=== PATIENT | male | born 1965 | race Caucasian/White ===

== ENCOUNTER 2023-11-12 08:46 | Outpatient (CLI) | payer OTHER, SELFPAY ==
[2023-11-13 08:23] LABS: Kit Draw Collected
== END 2023-11-12 08:47 | disposition home or self-care (01) ==
LOC: ANHGOSHLAB 08:48
PROVIDERS: PCP Family Medicine; Visit Provider Nurse Practitioner Family
DX: E78.49 Other hyperlipidemia (principal); E66.3 Overweight; Z12.5 Encounter for screening for malignant neoplasm of prostate
CPT/HCPCS: 36415

== ENCOUNTER 2024-11-11 08:42 | Outpatient (CLI) | payer OTHER, SELFPAY | END 2024-11-11 08:43 | disposition home or self-care (01) | LOC: ANHGOSHLAB 08:45 | PROVIDERS: PCP Family Medicine; Visit Provider Nurse Practitioner Family | DX: E66.3 Overweight (principal); E78.49 Other hyperlipidemia | CPT/HCPCS: 36415 ==

== ENCOUNTER 2025-01-19 07:22 | Day surgery (SDC) | payer OTHER, SELFPAY ==
[2024-11-28 09:06] VITALS: BMI 28.3
[2024-12-31 13:37] VITALS: BMI 29.0
[2025-01-19] MEDS: LACTATED RINGERS 1,000 ML 150 ML IV CONT (07:53)
[2025-01-19 07:56] VITALS: BP 129/86; PULSE 64; RESP 18; TEMP 36.7; O2SAT 99
--- NOTE | 2025-01-19 08:39 | P.PNAN_ITS ---
Anes - Initial Pre Proc Eval Procedure: Operation Date: 01/19/25 09:00 Proposed Procedures p Screening Colonoscopy - Ger Marsh DO Date/Time: 01/19/25 08:39 Surgeon: Ger Marsh DO Pre Op Diagnosis: Family History of Colon Polyps Patient Data Age: 59 Gender: M Height: 1.73 m Weight: 84.75 kg Last Vital Signs Temp 98.1 F 01/19/25 07:56 Pulse 64 01/19/25 07:56 Resp 18 01/19/25 07:56 BP 129/86 01/19/25 07:56 Pulse Ox 99 01/19/25 07:56 O2 Del Method Room Air 01/19/25 07:56 Allergies Allergy/AdvReac Type Severity Reaction Status Date / Time No Known Allergies Allergy Mild Verified 12/31/24 13:35 Home Medications ?Medication ?Instructions ?Recorded ?Confirmed ?Type atorvastatin 10 mg tablet 10 mg PO DAILY 12/31/2401/05 History Patient hx anesthesia problems: none Family hx anesthesia problems: none Results Review: All pre-operative results and documents have been reviewed as part of the pre- operative evaluation. [facility] Past Medical History Medical History Overweight (BMI 25.0-29.9) Social History Social History Smoking status: Never smoker Alcohol intake: current Drinks per week: 1 Substance use: never Substance use type: does not use Living arrangements: with family Spiritual care concerns: No Anes - Eval Final PreProcedure Day of Procedure 01/19/25 08:39 Heart: regular rate and rhythm Lungs: clear to auscultation Airway: Mallampati scale class II Neurological: alert and oriented ASA classification: II Anesthetic plan: proceed Anesthesia type and monitoring: monitored anesthesia care Results Review: All pre-operative results and documents have been reviewed as part of the pre- operative evaluation. Informed Consent: The patient's anesthetic plan and its attendant risks and benefits were discussed with the patient/family/POA. Questions were solicited and answers provided to the satisfaction of the patient/family/POA.
--- NOTE | 2025-01-19 08:55 | WPDANESPN ---
Anes - Prog Note Post-Op Date/Time: 01/19/25 08:55 Vital Signs: Last Vital Signs Temp 98.1 F 01/19/25 07:56 Pulse 64 01/19/25 07:56 Resp 18 01/19/25 07:56 BP 129/86 01/19/25 07:56 Pulse Ox 99 01/19/25 07:56 O2 Del Method Room Air 01/19/25 07:56 Pain Score (VAS): no Patient Feedback: Patient satisfied with anesthetic care.
--- NOTE | 2025-01-19 08:57 | PM.IMHP ---
H&P: HPI History of Present Illness Date/Time: 01/19/25 08:57 Chief Complaint: screening for colorectal cancer Narrative: this is a 59-year-old man who presents for colonoscopy. His last colonoscopy was 8 years ago. Is some family history of colon polyps in his and sister. He denies family history of colon cancer. He denies hematochezia or melena. Review of Systems Review of Systems: All systems reviewed & are unremarkable except as noted in HPI and below Constitutional: Constitutional: Denies chills, Denies fever(s), Denies headache(s) and Denies weight loss Eyes: Eyes: Denies change in vision ENT: Denies dizziness, Denies headache(s), Denies neck mass and Denies throat swelling Cardiovascular: Cardiovascular: Denies chest pain, Denies lightheadedness and Denies dyspnea Respiratory: Respiratory: Denies cough, Denies dyspnea and Denies wheezing Gastrointestinal: Gastrointestinal: Denies abdominal pain, Denies change in bowel habits, Denies nausea and Denies vomiting Genitourinary: Genitourinary: Denies hematuria and Denies dysuria Musculoskeletal: Musculoskeletal: Reports as per HPI Integumentary/Breasts: Skin/Breast: Reports as per HPI Neurologic: Denies dizziness and Denies headache(s) Allergic/Immunologic: Allergic/Immunologic: Denies throat swelling and Denies wheezing PMF Past Medical History Medical History Overweight (BMI 25.0-29.9) Social History Social History Smoking status: Never smoker Alcohol intake: current Drinks per week: 1 Substance use: never Substance use type: does not use Living arrangements: with family Spiritual care concerns: No Meds Home Medications and Allergies Home Medications ?Medication ?Instructions ?Recorded ?Confirmed ?Type atorvastatin 10 mg tablet 10 mg PO DAILY 12/31/24 01/19/25 History Allergies Allergy/AdvReac Type Severity Reaction Status Date / Time No Known Allergies Allergy Mild Verified 12/31/24 13:35 Vital Signs Vital Signs - 24 hr 01/19/25 07:56 Temperature 98.1 F Pulse Rate 64 Respiratory Rate 18 Blood Pressure 129/86 Pulse Oximetry 99 Oxygen Delivery Room Air Exam Const: General: no acute distress and alert Orientation/consciousness: patient oriented x3 HENMT: Head: normocephalic and atraumatic Ears: hearing grossly normal bilaterally Face/Nose/Sinus: Normal nares present Mouth: Yes Normal oral and palatal mucosa present Eyes: Periorbital: periorbital findings normal Sclera: sclerae normal EOM: EOMs intact bilaterally Neck: Neck: normal visual inspection, no lymphadenopathy and trachea midline Chest: Chest palpation & inspection: normal inspection of the chest Resp: Effort & Inspection: normal respiratory effort Auscultation: clear to auscultation bilaterally Cardio: Jugular venous distension: no JVD Rate: regular rate Rhythm: regular rhythm Heart sounds: S1 normal heart sound present and S2 normal heart sound present Peripheral pulses: Peripheral pulses 2+ throughout GI: Inspection: normal to inspection GI Palp: Yes Soft to palpation, No Tenderness to palpation present (GI), No Guarding due to palpation present (GI) and No Rebound tenderness present Percussion: Yes normal to percussion Auscultation: normal bowel sounds : General: Yes no CVA tenderness Back/Spine/Pelvis: Back: no CVA tenderness Neuro: General: patient oriented x3, no focal motor deficits and CN's II-XI intact bilaterally Cognition (Neuro): normal cognition Speech: normal speech Motor exam (neuro): 5/5 motor strength present throughout Extrem: General: capillary refill normal and no clubbing, cyanosis or edema Assessment and Plan Assessment and plan (1) Screening for colorectal cancer: Code(s): Z12.11 - Encounter for screening for malignant neoplasm of colon; Z12.12 - Encounter for screening for malignant neoplasm of rectum Status: Acute Assessment and Plan: I have recommended colonoscopy. I have discussed the procedure, risks, benefits, and alternatives. Questions were answered. Patient is agreeable to proceed. (2) Family hx colonic polyps: Code(s): Z83.719 - Family history of colon polyps, unspecified Status: Acute
[2025-01-19 09:18] VITALS: BP 113/79; PULSE 57; RESP 16; O2SAT 100
[2025-01-19 09:28] VITALS: BP 120/75; PULSE 55; RESP 17; O2SAT 100
[2025-01-19 09:38] VITALS: BP 132/83; PULSE 52; RESP 18; O2SAT 100
== END 2025-01-19 09:58 | disposition home or self-care (01) ==
PROVIDERS: PCP Family Medicine; Visit Provider Surgery
PROC: 0DJD8ZZ Inspection of Lower Intestinal Tract, Via Natural or Artificial Opening Endoscopic (ICD-10-PCS; CPT 45378; principal; 2025-01-19 09:00)
DX: Z12.11 Encounter for screening for malignant neoplasm of colon (principal)
CPT/HCPCS: 45378

== ENCOUNTER 2025-02-20 19:01 | Emergency (ER) | payer OTHER, SELFPAY ==
[2025-02-20 19:12] VITALS: BP 146/92; PULSE 68; RESP 18; TEMP 36.9; O2SAT 100
[2025-02-20 20:15] LABS: EDSTREPNEGPOS1 Negative (Negative)
--- NOTE | 2025-02-20 20:22 | ED.URI ---
HPI - URI/Sore Throat General Chief Complaint: Upper Respiratory Infection Stated Complaint: Sore Throat/Nasal Congestion Time Seen by Provider: 02/20/25 20:09 Source: patient and RN notes reviewed Mode of arrival: ambulatory Limitations: no limitations History of Present Illness HPI Narrative: 59-year-old male patient complains of a 2 day history of sore throat, nasal congestion, postnasal drip, subjective fever, sweats, chills. He just got home on an airplane today from a cruise. Denies cough or shortness of breath. Currently rates pain 3/10 and has tried no OTC treatment prior to arrival. He is a nonsmoker. No history of asthma or COPD. Related Data Home Medications ?Medication ?Instructions ?Recorded ?Confirmed ?Last Taken ?Type atorvastatin 10 mg tablet 10 mg PO DAILY 12/31/24 01/19/25 01/18/25 History Allergies Allergy/AdvReac Type Severity Reaction Status Date / Time No Known Allergies Allergy Mild Verified 02/20/25 19:03 [facility] Past Medical History Medical History Overweight (BMI 25.0-29.9) Social History Social History Smoking status: Never smoker Alcohol intake: current Drinks per week: 1 Substance use: never Substance use type: does not use Living arrangements: with family Spiritual care concerns: No Comments At time of signature, I have reviewed and agree with nursing past medical, surgical, social and family history unless otherwise noted. Please see nursing chart for further information. There is no relevant family history pertinent to the presenting complaint Exam Narrative: GENERAL: Mildly ill-appearing, well-nourished, and in no acute distress. HEAD: Normocephalic, atraumatic. EYES: EOMI. No redness or drainage. Conjunctivae normal. ENT: Mucous membranes pink and moist. Nares mildly congested. No rhinorrhea. TMs normal bilaterally. Throat very mildly erythematous with some clear postnasal drainage. Uvula midline. NECK: Normal AROM. Supple. No lymphadenopathy. CHEST: No respiratory distress. Clear to auscultation. HEART: Regular rate and rhythm. No murmur appreciated. EXTREMITIES: Normal range of motion. No edema. SKIN: Warm, dry, no rash. Capillary refill normal. Normal skin turgor. NEURO: No focal deficits. Alert and oriented x3. Gait steady. PSYCH: Normal affect. No signs of depression or anxiety. Course Course Level of Care: Express Care Visit Vital Signs Vital signs: Vital Signs Temperature 98.4 F 02/20/25 19:12 Pulse Rate 68 02/20/25 19:12 Respiratory Rate 18 02/20/25 19:12 Blood Pressure 146/92 H 02/20/25 19:12 Pulse Oximetry 100 02/20/25 19:12 Oxygen Delivery Room Air 02/20/25 19:12 Temperature 98.4 F 02/20/25 19:12 Pulse Rate 68 02/20/25 19:12 Respiratory Rate 18 02/20/25 19:12 Blood Pressure 146/92 H 02/20/25 19:12 Pulse Oximetry 100 02/20/25 19:12 Oxygen Delivery Room Air 02/20/25 19:12 Reviewed MDM - URI/Sore Throat MDM Narrative Medical decision making narrative: 59-year-old male patient complains of a 2 day history of sore throat, nasal congestion, postnasal drip, subjective fever, sweats, chills. He just got home on an airplane today from a cruise. No OTC treatment prior to arrival. Upon exam, mild nasal congestion and mild erythema in the throat with some postnasal drainage. Rapid strep negative. Culture pending. Patient declines COVID-19 testing. Symptoms likely viral in etiology. Discussed [id number] medication use and duration of illness. No prescription medications indicated at this time. Anticipatory guidance given. Vital signs stable. Differential Diagnosis Differential diagnosis: Likely upper respiratory infection, viral infection, influenza, pharyngitis and other (Strep throat, COVID-19) Lab Data Attestation: I reviewed the patient's lab results. Labs: Lab Results 02/20/25 Range/Units 20:14 POC Grp A Strep Screen Negative (Negative) Critical Care Time Critical Care Time Critical Care Time: No Discharge Plan Discharge Clinical Impression: Upper respiratory infection Qualifiers: URI type: unspecified URI Qualified Code(s): J06.9 - Acute upper respiratory infection, unspecified Patient Disposition: Home Condition: Stable Instructions: Upper Respiratory Infection (DC) Additional Instructions: Your rapid strep swab was negative today at [facility]. You will be notified in a few days if the culture comes back positive for strep, and appropriate antibiotics will be called in for you at that time. Your symptoms are likely due to a viral illness, which is not treated with antibiotics. Viral symptoms can be present for up to 7-10 days. Take Tylenol or ibuprofen for fever or pain. You may consider an intranasal steroid such as Flonase. Rest and stay hydrated. Follow up with your PCP in 7 days if symptoms are not improving. Go to the ER immediately if you have any difficulty breathing or swallowing. Patient Language: Turkish Prescriptions: No Action atorvastatin 10 mg tablet 10 mg PO DAILY Rx Instructions: TAKE 1 TABLET BY MOUTH DAILY Follow-up/Referrals: Bay Muir MD [Primary Care Provider, Family Practice] Time of Disposition: 20:20
== END 2025-02-20 20:25 | disposition home or self-care (01) ==
PROVIDERS: Emergency Provider Nurse Practitioner; PCP Family Medicine
DX: J06.9 Acute upper respiratory infection, unspecified (principal)
CPT/HCPCS: 87081; 87880; 99213; G0463